=== PATIENT | female | born 1995 | race Hispanic/Latino ===

== ENCOUNTER 2019-10-04 08:07 | Emergency (ER) | payer OTHER ==
[~2019-10-04] VITALS: Ht 162.6 cm; Wt 88.5 kg
[~2019-10-04 08:07] MED LIST: BENADRYL ITCH28.3 G1 TOP; KEFLEX500 MG PO
[2019-10-04] MEDS ORDERED: PRENATAL VITAM1 EACH PO (08:25)
== END 2019-10-04 08:57 | disposition home or self-care (01) ==
LOC: ED 08:07
DX: O99.513 Diseases of the respiratory system complicating pregnancy, third trimester (principal); J06.9 Acute upper respiratory infection, unspecified; Z3A.36 36 weeks gestation of pregnancy
CPT/HCPCS: 99283